=== PATIENT | male | born 1940 | race Caucasian/White ===

== ENCOUNTER → 2016-10-08 | Day surgery (SDC) | payer MEDICARE, OTHER ==
[~2016-10-08] MED LIST: ALTACE5 MG PO; ASPIR 8181 MG PO; COLACE100 MG PO; COREG3.125 MG PO; CYMBALTA30 MG PO; DEMADEX20 MG PO; FLOMAX0.4 MG PO; GLUCOPHAGE1000 MG PO; LANTUS SOL100 UNIT/1 SQ; LASIX40 MG PO; LEVEMIR FL100 UNIT/1 INJ; LEVEMIR100 UNIT/1 SQ; LIPITOR10 MG PO; LIPITOR40 MG PO; LISINOPRIL2.5 MG PO; LYRICA150 MG PO; LYRICA25 MG PO; PATADAY2.5 ML OU; PERCOCET 5-3251 EACH PO; POLYETHYLENE GL17 GM PO; POLYSPORIN OINT15 GM TOP; PREDNISONE10 MG PO; SINEMET 25-1001 EACH PO; SPIRIVA RESPIMAT4 GM IH; XARELTO15 MG PO; XARELTO20 MG PO; ZYRTEC10 MG PO
== END | disposition home or self-care (01) ==
LOC: SDC 05:55
DX: H26.9 Unspecified cataract (principal); E11.9 Type 2 diabetes mellitus without complications; I11.0 Hypertensive heart disease with heart failure; I50.9 Heart failure, unspecified; I25.2 Old myocardial infarction; K59.00 Constipation, unspecified; N28.9 Disorder of kidney and ureter, unspecified; N40.0 Benign prostatic hyperplasia without lower urinary tract symptoms; G47.33 Obstructive sleep apnea (adult) (pediatric); G89.29 Other chronic pain; M54.9 Dorsalgia, unspecified; M19.90 Unspecified osteoarthritis, unspecified site; Z88.1 Allergy status to other antibiotic agents; Z79.82 Long term (current) use of aspirin; Z95.0 Presence of cardiac pacemaker
CPT/HCPCS: C1780; J0171; J1100; J1580